=== PATIENT | male | born 1980 | race Caucasian/White ===

== ENCOUNTER 2018-08-24 18:35 | Emergency (ER) | payer BC ==
[2018-08-24] MEDS ORDERED: Famotidine TAB* 20 MG PO ONE (19:11)
[2018-08-24] MEDS ORDERED: Aspirin 81 mg CHEW TAB* 81 MG TAB.CHEW PO ONE (19:11)
[2018-08-24 19:18] LABS: Activated Partial Thrombo Time 30.4 seconds (26.0-36.3)
[2018-08-24 19:33] LABS: Albumin 4.4 g/dL (3.2-5.2); Albumin/Globulin Ratio 1.6 (1-3); Alkaline Phosphatase 104 U/L (34-104); CO2 Carbon Dioxide 20 mmol/L (22-32); Calcium 8.9 mg/dL (8.6-10.3); Chloride 96 mmol/L (101-111); EGFR African American 95.1 (>60); EGFR Non-African American 78.6 (>60); Globulin 2.7 g/dL (2-4); Glucose 205 mg/dL (70-100); Sodium 126 mmol/L (135-145); Total Protein 7.1 g/dL (6.4-8.9); Troponin I 0.01 ng/mL (<0.04)
[2018-08-24 19:34] LABS: ABS Basophils 0.1 10^3/ul (0-0.2); ABS Eosinophils 0.3 10^3/ul (0-0.6); ABS Monocytes 0.7 10^3/ul (0-0.8); ABS Neutrophils 5.7 10^3/ul (1.5-7.7); Eosinophil % 3.2 %; Hematocrit 44 % (42-52); Hemoglobin 14.7 g/dL (14.0-18.0); Lymphocyte % 30.3 %; Mean Corpuscular HGB Conc 33 g/dL (31-36); Mean Corpuscular Hemoglobin 28 pg (27-31); Mean Corpuscular Volume 82 fL (80-94); Mean Platelet Volume 6.8 fL (7.4-10.4); Nucleated Red Blood Cells % 0.5; Platelet Count 314 10^3/uL (150-450); Red Blood Count 5.33 10^6 /uL (4.18-5.48); Red Cell Distribution Width 13 % (10.5-15); White Blood Count 9.8 10^3/uL (3.5-10.8)
[2018-08-24 19:52] LABS: ALT 30 U/L (7-52); BUN/Creatinine Ratio 13.2 (8-20); Blood Urea Nitrogen 14 mg/dL (6-24)
[2018-08-24 19:54] LABS: Anion Gap 10 mmol/L (2-11)
--- NOTE | 2018-08-24 21:06 | ED ---
HPI Chest Pain - HPI Summary HPI Summary: Pt is a 38 y/o male who presents to the ED c/o CP. Around 9:00 today he began to have epigastric pain described as heartburn. Pt took Prilosec and Tums for his symptoms without relief, which normally help this sort of pain. The pain then migrated to his chest, and now radiates to his mid back and right arm. Pain fluctuates in intensity, and is rated a 9/10 at its worst. Pain is currently rated a 2/10 in severity and is described as soreness. Pt states pain worsens with deep breaths, and is made better briefly after drinking water. He also c/o belching. He denies any SOB, BOURNE, blurred vision, diplopia, cough, LE pain, or LE numbness. He is a former smoker. PMHx DM, pt is on Metformin. He drinks alcohol about once per month. - History of Current Complaint Chief Complaint: EDChestPainROMI Time Seen by Provider: 08/24/18 21:01 Hx Obtained From: Patient Onset/Duration: Started Hours Ago - 9:00 this morning, Still Present Timing: Constant - fluctuates in severity Initial Severity: Severe - 9/10 Current Severity: Mild Pain Intensity: 2 Pain Scale Used: 0-10 Numeric Chest Pain Location: Mid Sternal - and epigastric Chest Pain Radiates: Yes Chest Pain Radiates To:: Back, Arm - L Character: Other: - soreness Aggravating Factor(s): Deep Breaths Alleviating Factor(s): Other: - water Associated Signs and Symptoms: Positive: Chest Pain, Abdominal Pain. Negative: Numbness, Shortness of Breath, Cough, Calf Pain/Swelling - Allergy/Home Medications Allergies/Adverse Reactions: Allergies Allergy/AdvReac Type Severity Reaction Status Date / Time ENVIRONMENT SEASONAL Allergy STUFFY Uncoded 01/11/15 11:24 Home Medications: Home Medications Metformin ER (NF) [Glucophage ER 750 MG TAB (NF)] 750 mg PO BID 08/24/18 [ History Confirmed 08/24/18] Omeprazole 40 mg PO DAILY 08/24/18 [History Confirmed 08/24/18] PMH/Surg Hx/FS Hx/Imm Hx Endocrine/Hematology History: Reports: Hx Diabetes Cardiovascular History: Reports: Hx Hypertension - resolved after losing weight Denies: Hx Pacemaker/ICD Respiratory History: Reports: Hx Seasonal Allergies, Hx Sleep Apnea GI History: Reports: Hx Gastroesophageal Reflux Disease Musculoskeletal History: Reports: Hx of Fracture(s) - leg Sensory History: Denies: Hx Contacts or Glasses, Hx Hearing Aid Opthamlomology History: Denies: Hx Contacts or Glasses Neurological History: Reports: Hx Migraine Psychiatric History: Denies: Hx Panic Disorder - Surgical History Surgery Procedure, Year, and Place: 2006 VASSvasectomy june 2006 Hx Anesthesia Reactions: Yes - LOCAL ONLY Infectious Disease History: No Infectious Disease History: Denies: Hx Shingles, Traveled Outside the [place] in Last 30 Days - Family History Known Family History: Positive: Cardiac Disease, Diabetes, Other - [place] - Social History Alcohol Use: None Alcohol Amount: once a month Hx Substance Use: No Substance Use Type: Reports: None Hx Tobacco Use: Yes Smoking Status (MU): Former Smoker Type: Cigarettes Amount Used/How Often: 2-3 CIGARETTES Length of Time of Smoking/Using Tobacco: 18 YEARS Have You Smoked in the Last Year: Yes Review of Systems Negative: Blurred Vision, Diplopia Positive: Chest Pain Positive: Other - pain with deep breaths. Negative: Shortness Of Breath, Cough Positive: Abdominal Pain - epigastric, Other - belching Positive: Myalgia - mid back, RUE. Negative: Other - LE pain Negative: Headache, Numbness - LE All Other Systems Reviewed And Are Negative: Yes Physical Exam - Summary Physical Exam Summary: Appearance: well appearing, no pain distress Skin: warm, dry, reflects adequate perfusion Head/face: normal Eyes: EOMI, GUNJAN ENT: mucous membranes moist Neck: supple, non-tender Respiratory: CTA, breath sounds present Cardiovascular: RRR, pulses symmetrical Abdomen: non-tender, soft Bowel Sounds: present Musculoskeletal: normal, strength/ROM intact Neuro: normal, sensory motor intact, A&Ox3 Triage Information Reviewed: Yes Vital Signs On Initial Exam: Initial Vitals Temp Pulse Resp BP Pulse Ox 99.2 F 85 18 135/100 95 08/24/18 18:43 08/24/18 18:43 08/24/18 18:43 08/24/18 18:43 08/24/18 18:43 Vital Signs Reviewed: Yes Diagnostics - Vital Signs Vital Signs Temp Pulse Resp BP Pulse Ox 08/24/18 18:43 99.2 F 85 18 135/100 95 - Laboratory Lab Results: Lab Results 08/24/18 08/24/18 08/24/18 Range/Units 18:59 18:59 18:59 WBC 9.8 (3.5-10.8) 10^3/uL RBC 5.33 (4.18-5.48) 10^6 /uL Hgb 14.7 (14.0-18.0) g/dL Hct 44 (42-52) % MCV 82 (80-94) fL MCH 28 (27-31) pg MCHC 33 (31-36) g/dL RDW 13 (10.5-15) % Plt Count 314 (150-450) 10^3/uL MPV 6.8 L (7.4-10.4) fL Neut % (Auto) 57.8 % Lymph % (Auto) 30.3 % [place] % (Auto) 7.3 % Eos % (Auto) 3.2 % Baso % (Auto) 1.4 % Absolute Neuts (auto) 5.7 (1.5-7.7) 10^3/ul Absolute Lymphs (auto) 3.0 (1.0-4.8) 10^3/ul Absolute Monos (auto) 0.7 (0-0.8) 10^3/ul Absolute Eos (auto) 0.3 (0-0.6) 10^3/ul Absolute Basos (auto) 0.1 (0-0.2) 10^3/ul Absolute Nucleated RBC 0.0 10^3/ul Nucleated RBC % 0.5 APTT 30.4 (26.0-36.3) seconds Sodium 126 L (135-145) mmol/L Potassium TNP Chloride 96 L (101-111) mmol/L Carbon Dioxide 20 L (22-32) mmol/L Anion Gap 10 (2-11) mmol/L BUN 14 (6-24) mg/dL Creatinine 1.06 (0.67-1.17) mg/dL Est GFR ( Amer) 95.1 (>60) Est GFR (Non-Af Amer) 78.6 (>60) BUN/Creatinine Ratio 13.2 (8-20) Glucose 205 H (70-100) mg/dL Calcium 8.9 (8.6-10.3) mg/dL Total Bilirubin 0.90 (0.2-1.0) mg/dL AST TNP ALT 30 (7-52) U/L Alkaline Phosphatase 104 (34-104) U/L Troponin I 0.01 (<0.04) ng/mL Total Protein 7.1 (6.4-8.9) g/dL Albumin 4.4 (3.2-5.2) g/dL Globulin 2.7 (2-4) g/dL Albumin/Globulin Ratio 1.6 (1-3) Result Diagrams: 08/24/18 18:59 08/24/18 18:59 Lab Statement: Any lab studies that have been ordered have been reviewed, and results considered in the medical decision making process. - EKG 18:45 Cardiac Rate: NL - 86 bpm EKG Rhythm: Sinus Rhythm Summary of EKG Findings: Nl axis, nl intervals, S1 Q3 T3 Re-Evaluation - Re-Evaluation First Eval Re-Evaluation Time: 22:05 Change: Improved Comment: Pt feels better after the GI cocktail. Chest Pain Course/Dx - Course Course Of Treatment: Patient with substernal chest pain felt mostly in his back with normal lipase. He has had some heartburn type symptoms. Troponin 2 is negative. EKG shows S1Q3T3 but d-dimer is negative. Patient felt much better with GI treatments was discharged on same. He will follow-up for outpatient stress test. - Chest Pain Differential Diagnosis/HQI/PQRI: Acute AR, ACS, CHF, GI Disease, Lower Respiratory Infection, Pulmonary Embolism - Diagnoses Provider Diagnoses: Hyperglycemia due to type 2 diabetes mellitus, GERD (gastroesophageal reflux disease), Atypical chest pain, Hyponatremia Discharge - Sign-Out/Discharge Documenting (check all that apply): Patient Departure - Discharge Patient Received Moderate/Deep Sedation with Procedure: No - Discharge Plan Condition: Improved Disposition: HOME Prescriptions: Famotidine TAB* [Pepcid 20 MG TAB*] 20 mg PO BID #30 tab Pantoprazole TAB * [Protonix TAB*] 40 mg PO DAILY #30 tab Sucralfate TAB* [Carafate*] 1 gm PO TID #30 tab Patient Education Materials: Chest Pain (ED), Gastroesophageal Reflux Disease ( ED) Referrals: Padmini Greenwood MD [Primary Care Provider] - Additional Instructions: Follow-up with your doctor this week as scheduled. Call first thing in the morning to confirm. Have her schedule you for an outpatient stress test. You likely need repeat blood work and possibly an outpatient EKG. Return with worsening chest pain, difficulty breathing, new symptoms or other concerns. Avoid anti-inflammatory medications, alcohol and hot or spicy foods. Caffeine may also exacerbate symptoms. - Billing Disposition and Condition Condition: IMPROVED Disposition: Home - Attestation Statements Document Initiated by Arnav: Yes Documenting Scribe: Shellie Bolivar Provider For Whom Arnav is Documenting (Include Credential): Alton Cruz MD Scribe Attestation: Shellie Dick, scribed for Alton Cruz MD on 08/25/18 at 0545. Scribe Documentation Reviewed: Yes Provider Attestation: The documentation as recorded by the Shellie lundberg accurately reflects the service I personally performed and the decisions made by , Alton Cruz MD Status of Scribe Document: Viewed
[2018-08-24] MEDS ORDERED: Sucralfate TAB* 1 GM PO ONE (21:23)
[2018-08-24] MEDS ORDERED: Al Hydrox/Mg Hydrox/Simet LIQ* 30 ML UDC PO ONE (21:23)
[2018-08-24 21:49] LABS: Alcohol < 10 mg/dL (<10)
[2018-08-24 22:22] VITALS: BP 112/62
== END 2018-08-24 22:15 | disposition home or self-care (01) ==
LOC: ED 18:35
DX: R10.13 Epigastric pain (principal); E11.65 Type 2 diabetes mellitus with hyperglycemia; K21.9 Gastro-esophageal reflux disease without esophagitis; R07.89 Other chest pain; E87.1 Hypo-osmolality and hyponatremia; Z87.891 Personal history of nicotine dependence
CPT/HCPCS: 36415; 80053; 80320; 82977; 83690; 84484; 85025; 85379; 85730; 93005; 99283; A9270-GY; G0480

== ENCOUNTER 2019-03-30 21:06 | Emergency (ER) | payer BC ==
[2019-03-30 21:40] VITALS: BP 145/86
--- NOTE | 2019-03-30 22:00 | UC ---
Lower Extremity/Ankle HPI - HPI Summary HPI Summary: 38-year-old male presents with complaints of left ankle pain. States earlier today he actually stepped in a pothole causing a twisting injury to the ankle. He was able to walk and bear weight on it immediately after the injury. States he spent the day following stone had not been on the ankle therefore was not causing him much pain but after work he started walking on it and the pain became increasingly worse. Patient had a walking boot from a previous injury to his other foot and has been using with some improvement in symptoms. Denies any numbness or tingling. - History of Current Complaint Chief Complaint: UCLowerExtremity Stated Complaint: ANKLE INJURY Time Seen by Provider: 03/30/19 21:17 Hx Obtained From: Patient Pain Intensity: 3 - Allergies/Home Medications Allergies/Adverse Reactions: Allergies Allergy/AdvReac Type Severity Reaction Status Date / Time ENVIRONMENT SEASONAL Allergy STUFFY Uncoded 03/30/19 21:41 Home Medications: Home Medications Empagliflozin [Jardiance] 10 mg PO DAILY 03/30/19 [History Confirmed 03/30/19] Melatonin 1 mg PO 03/30/19 [History] Naproxen Sodium [Aleve] 220 mg PO ONCE PRN 03/30/19 [History Confirmed 03/30/19] hydrOXYzine HCL TAB* [Atarax 10 MG TAB*] 03/30/19 [History] metFORMIN* [Glucophage 500 MG TAB *] 500 mg PO BID 03/30/19 [History Confirmed 03/30/19] PMH/Surg Hx/FS Hx/Imm Hx Endocrine History: Diabetes Cardiovascular History: Hypertension - Surgical History Surgical History: Yes Surgery Procedure, Year, and Place: 2006 vasectomy june 2006, right ankle ORIF - Family History Known Family History: Positive: Cardiac Disease, Diabetes, Other - [place] - Social History Occupation: Employed Full-time Lives: With Family Alcohol Use: Rare Alcohol Amount: once a month Substance Use Type: None Smoking Status (MU): Former Smoker Type: Cigarettes Amount Used/How Often: 2-3 CIGARETTES Length of Time of Smoking/Using Tobacco: 18 YEARS Have You Smoked in the Last Year: Yes - Immunization History Most Recent Influenza Vaccination: Never Most Recent Tetanus Shot: Within past 10 years Most Recent Pneumonia Vaccination: Never Review of Systems All Other Systems Reviewed And Are Negative: Yes Constitutional: Positive: Negative Skin: Negative: Bruising Respiratory: Positive: Negative Cardiovascular: Positive: Negative Gastrointestinal: Positive: Negative Genitourinary: Positive: Negative Motor: Negative: Weakness Neurovascular: Negative: Decreased Sensation Musculoskeletal: Positive: Other: - See HPI Neurological: Positive: Negative Is Patient Immunocompromised?: No Physical Exam - Summary Physical Exam Summary: GENERAL APPEARANCE: Well developed, well nourished, alert and cooperative, and appears to be in no acute distress. CARDIAC: Normal S1 and S2. No S3, S4 or murmurs. Rhythm is regular. There is no peripheral edema, cyanosis or pallor. Extremities are warm and well perfused. Capillary refill is less than 2 seconds. Peripheral pulses intact. LUNGS: Clear to auscultation without rales, rhonchi, wheezing or diminished breath sounds. ABDOMEN: Positive bowel sounds. Soft, nondistended, nontender. No guarding or rebound. No masses or hepatosplenomegally. MUSKULOSKELETAL: Normal muscular development. Limping gait. EXTREMITIES: Tenderness over the lateral malleolus without gross deformity or eccymosis. Moderate edema to the lateral ankle. No laxity. Circulation and sensation intact. SKIN: Skin normal color, texture and turgor with no lesions or eruptions. Triage Information Reviewed: Yes Vital Signs: Initial Vital Signs Temp 98 F 03/30/19 21:32 Pulse 88 03/30/19 21:32 Resp 18 03/30/19 21:32 BP 145/86 03/30/19 21:32 Pulse Ox 97 03/30/19 21:32 Vital Signs Reviewed: Yes Diagnostics - Radiology No standard instances Radiology Interpretation Completed By: ED Physician - No acute fracture or dislocation. Lower Extremity Course/Dx - Course Course Of Treatment: 38-year-old male presents with complaints of left ankle pain. States earlier today he actually stepped in a pothole causing a twisting injury to the ankle. He was able to walk and bear weight on it immediately after the injury. States he spent the day following stone had not been on the ankle therefore was not causing him much pain but after work he started walking on it and the pain became increasingly worse. Patient had a walking boot from a previous injury to his other foot and has been using with some improvement in symptoms. Denies any numbness or tingling. Afebrile. Hypertensive otherwise vital signs stable. Patient had tenderness over the lateral malleolus without gross deformity or eccymosis, moderate edema to the lateral ankle, no laxity with circulation and sensation intact. Preliminary reading of x-ray revealed no acute fracture or dislocation. Recommending conservative treatment for a left ankle sprain including continued use of his walking boot, [id number] analgesics, and RACE. He is to follow-up with orthopedic surgery in one week if symptoms do not improve. Anticipatory guidance and warning symptoms were reviewed with the patient. Verbalizes understanding and agrees with plan of care. - Differential Dx/Diagnosis Differential Diagnosis/HQI/PQRI: Dislocation, Fracture (Closed), Sprain Provider Diagnosis: Left ankle sprain Discharge ED - Sign-Out/Discharge Documenting (check all that apply): Patient Departure All imaging exams completed and their final reports reviewed: No - Discharge Plan Condition: Stable Disposition: HOME Patient Education Materials: Ankle Sprain (ED), Walking Boot (ED) Referrals: Padmini Greenwood MD [Primary Care Provider] - Mike Dickerson MD [Medical Doctor] - 7 Days (If no improvement in symptoms. Call for appointment. ) Additional Instructions: The x-ray performed in the clinic today showed no evidence of a fracture. The x -ray will be reviewed by the radiologist tomorrow and if they see something that I did not we will contact you. Rest the ankle as much as possible. You may continue to walk and bear weight as tolerated. Use your walking boot until you are pain free. You may remove to shower and sleep but should wear at all other times. Apply ice to the affected area for 15-20 minutes at least 4 times a day to help with the pain and swelling. Elevate the leg to help reduce swelling. Take acetaminophen (Tylenol) or ibuprofen (Advil, Motrin) according to directions as needed for pain. Follow up with orthopedic surgery in 7 days if symptoms do not improve. Seek immediate medical attention if you have severe pain not managed with pain medication, you are unable to walk or bear any weight, develop numbness or tingling in the foot or toes, or have any worsening of symptoms. - Billing Disposition and Condition Condition: STABLE Disposition: Home
--- NOTE | 2019-03-31 14:42 | UC ---
- Progress Note Progress Note: RADIOLOGY REPORT REVIEWED. SOFT TISSUE SWELLING, NO ACUTE FRACTURE IS SEEN. NO CHANGE IN MGMT. Course/Dx - Diagnoses Provider Diagnoses: Left ankle sprain Discharge ED - Sign-Out/Discharge Documenting (check all that apply): Post-Discharge Follow Up All imaging exams completed and their final reports reviewed: Yes - Discharge Plan Condition: Stable Disposition: HOME Patient Education Materials: Ankle Sprain (ED), Walking Boot (ED) Referrals: Mike Dickerson MD [Medical Doctor] - 7 Days (If no improvement in symptoms. Call for appointment. ) Padmini Greenwood MD [Primary Care Provider] - Additional Instructions: The x-ray performed in the clinic today showed no evidence of a fracture. The x -ray will be reviewed by the radiologist tomorrow and if they see something that I did not we will contact you. Rest the ankle as much as possible. You may continue to walk and bear weight as tolerated. Use your walking boot until you are pain free. You may remove to shower and sleep but should wear at all other times. Apply ice to the affected area for 15-20 minutes at least 4 times a day to help with the pain and swelling. Elevate the leg to help reduce swelling. Take acetaminophen (Tylenol) or ibuprofen (Advil, Motrin) according to directions as needed for pain. Follow up with orthopedic surgery in 7 days if symptoms do not improve. Seek immediate medical attention if you have severe pain not managed with pain medication, you are unable to walk or bear any weight, develop numbness or tingling in the foot or toes, or have any worsening of symptoms. - Billing Disposition and Condition Condition: STABLE Disposition: Home
== END 2019-03-30 22:04 | disposition home or self-care (01) ==
LOC: UCEAST 21:06
DX: S93.402A Sprain of unspecified ligament of left ankle, initial encounter (principal); E11.9 Type 2 diabetes mellitus without complications; I10 Essential (primary) hypertension; X50.9XXA Other and unspecified overexertion or strenuous movements or postures, initial encounter; Y92.9 Unspecified place or not applicable; Z91.09 Other allergy status, other than to drugs and biological substances; Z87.891 Personal history of nicotine dependence
CPT/HCPCS: 99211; G0463